=== PATIENT | female | born 1980 | race Caucasian/White ===

== ENCOUNTER → 2022-06-13 | Outpatient (CLI) | payer OTHER ==
--- NOTE | 2022-06-13 18:14 | CA ---
Exercise Stress Test Report Name: Jolly Peters Exam Date: 06/13/2022 09:13 Exam Location: [facility] Ht (in): 69 Wt (lb): 245 BSA: 2.25 Ordering Phys: Adri Herrera MD Referring Phys: MARSHA,, Technologist: JULIANO,, Age: 42 Gender: F : 1980 Procedure CPT: Indications: Chest Pain ICD-10 Codes: Patient History: Medications: NAPROXEN,,,,,, OMEPRAZOLE,,,,,, SINGULAIR,,,,, Meds past 24 hrs: Pretest Chest Pain: STRESS TEST Luis Antonio Protocol Exercise Duration (min:sec): 10:[address] Depressions (mm): Angina Score: Valdez Score: Resting HR (bpm): 78 Peak HR (bpm): 180 Resting BP (mmHg): 137 / 84 Peak BP (mmHg): 203 / 89 MPHR: 177 Target HR: 150 % MPHR: 102 METS: 12.1 Total Dose: Peak Dose: Atropine: Double Product: 87309 BP Response: Stress Termination: TARGET HR REACHED/MAX EXERTION Stress Symptoms: NO SYMPTOMS Stress Summary: ECG ANALYSIS Resting ECG: Normal sinus rhythm normal axis normal intervals Stress ECG: Patient exercised on Luis Antonio protocol for a total of 10 minutes achieving 11 metastases 85% of predicted maximal heart rate without chest pain or diagnostic ST segment depression CONCLUSIONS Good exercise tolerance Negative stress test by EKG criteria Dr. Basilio Soto MD (Electronically Signed) Final Date: 13 June 2022 18:13
== END | disposition home or self-care (01) ==
LOC: RADNMMAIN 08:45
PROVIDERS: ATTEND Student in an Organized Health Care Education/Training Program
DX: I49.9 Cardiac arrhythmia, unspecified (principal); R07.9 Chest pain, unspecified; R42 Dizziness and giddiness
CPT/HCPCS: 93017

== ENCOUNTER → 2023-09-20 | Outpatient (CLI) | payer OTHER ==
--- NOTE | 2023-09-21 08:44 | MM ---
Reason for Exam: Screening (asymptomatic). Last screening mammogram was performed 12 month(s) ago. Patient History: Menarche at age 11. First Full-Term at age 12. Premenopausal. Hormonal Contraceptives, from age 13 until age 39. Bilateral Reduction. Risk Values: Alida 5 year model risk: 0.6%. NCI Lifetime model risk: 7.1%. Prior Study Comparison: 03/24/2020 Bilateral Screening Mammogram, [facility]. 09/16/2022 Bilateral MG 3D screening mammo w/cad, [facility]. Tissue Density: There are scattered areas of fibroglandular density. Findings: Analyzed By CAD. There is no suspicious group of microcalcifications or new suspicious mass in either breast. Stable asymmetric density upper outer markings left breast. Overall Assessment: Benign, BI-RAD 2 Management: Screening Mammogram of both breasts in 1 year. . Patient should continue monthly self-breast exams. A clinical breast exam by your physician is recommended on an annual basis. This exam should not preclude additional follow-up of suspicious palpable abnormalities. Note on Alida scores and lifetime risk: 1. A Alida score greater than 3% is considered moderate risk. If this is the case, consider specialist referral to assess eligibility for a risk reducing agent. 2. If overall lifetime risk for the development of breast cancer is 20% or higher, the patient may qualify for future screening with alternating mammogram and breast MRI. Electronically signed and approved by: Italo Rowe M.D. Radiologis
== END | disposition home or self-care (01) ==
LOC: RADMAMWWP 08:15
PROVIDERS: ATTEND Student in an Organized Health Care Education/Training Program
DX: Z12.31 Encounter for screening mammogram for malignant neoplasm of breast (principal); R92.323 Mammographic fibroglandular density, bilateral breasts
CPT/HCPCS: 77063; 77067